=== PATIENT | male | born 1995 | race Caucasian/White ===

== ENCOUNTER 2018-04-17 15:44 | Emergency (ER) | payer OTHER ==
--- NOTE | 2018-04-17 15:57 | ER Report ---
History and Physical Time Seen By MD: 15:57 HPI/ROS CHIEF COMPLAINT: Cold symptoms HISTORY OF PRESENT ILLNESS: This is a 22-year-old male presents to the emergency department for cold symptoms. The patient states yesterday when he woke up he was not feeling well, did work today did not feel good significantly worse today, patient states he did take some ibuprofen and Tylenol yesterday, took some NyQuil today, and decided to come in for further evaluation, has aches and chills, a dry nonproductive cough. No rashes. REVIEW OF SYSTEMS: Constitutional: As above. Respiratory: As above. Cardiovascular: No chest pain, no palpitations. Gastrointestinal: No vomiting, no abdominal pain. Musculoskeletal: No back pain. Home Meds No Active Prescriptions or Reported Meds Past Medical/Surgical History Patient has a past medical and surgical history of bronchitis. Reviewed Nurses Notes: Yes Constitutional Vital Sign - Last 24 Hours 04/17/18 04/17/18 15:58 17:20 Temp 100.3 99.0 Pulse 105 98 Resp 20 20 B/P (MAP) 128/82 107/63 (78) Pulse Ox 93 92 O2 Delivery Room Air Room Air Physical Exam General Appearance: The patient is alert, has no immediate need for airway protection and no current signs of toxicity. Eyes: Pupils equal and round no injection. Respiratory: Chest is non tender, lungs are clear to auscultation. Cardiac: regular rate and rhythm, no murmurs, clicks or rubs. Gastrointestinal: Abdomen is soft and non tender, no masses, bowel sounds normal . Musculoskeletal: Neck: Anterior cervical chain lymphadenopathy. Extremities have full range of motion and are non tender. Skin: No rashes or lesions. DIFFERENTIAL DIAGNOSIS: After history and physical exam differential diagnosis was considered for adult fever including but not limited to viral syndromes including influenza, urinary tract infection, pneumonia and sepsis. Medical Decision Making Data Points Laboratory Hematology Test 04/17/18 15:51 Influenza Virus Type A (PCR) Positive (NEGATIVE) Influenza Virus Type B (PCR) Negative (NEGATIVE) Chemistry Test 04/17/18 15:51 Influenza Virus Type A (PCR) Positive (NEGATIVE) Influenza Virus Type B (PCR) Negative (NEGATIVE) ED Course/Re-evaluation ED Course Patient was admitted to room. A history and physical were obtained. Differential diagnoses were considered. Patient was positive for influenza a, I did review the results with the patient and his grandmother. Patient declined Tamiflu at this time, we discussed symptomatic treatment including ibuprofen, Tylenol and fluids. Patient was given a note for work, instructed to follow-up with his primary care provider or return to the ER for any other concerns, he expressed understanding was agreeable with this plan care and discharged home. Decision to Disposition Date: Apr 17, 2018 Decision to Disposition Time: 17:12 Depart Departure Latest Vital Signs Vital Signs Date Time Temp Pulse Resp B/P (MAP) Pulse Ox O2 Delivery O2 Flow Rate FiO2 04/17/18 17:20 99.0 98 20 107/63 (78) 92 Room Air Impression: Primary Impression: Influenza A Condition: Improved Disposition: HOME OR SELF-CARE New Scripts No Active Prescriptions or Reported Meds Departure Forms: ER Transition Record, Medications Reconciliation, Off Work/School Form, Number of days to be released: 3 Patient Portal Information Additional Instructions: You have influenza, no work for the next 3 days. Be sure to drink plenty of fluids. Get plenty of rest. Take ibuprofen and/or Tylenol as needed for pain. Return to the emergency department for any other concerns or worsening symptoms. HALIMA KNIGHT RN TRANSFER-BC Apr 17, 2018 15:57
[2018-04-17] MEDS ORDERED: IBUPROFEN 800 MG TAB PO ONE (16:05)
[2018-04-17 17:20] VITALS: BP 107/63
== END 2018-04-17 17:25 | disposition home or self-care (01) ==
LOC: ER 15:55
DX: J09.X2 Influenza due to identified novel influenza A virus with other respiratory manifestations (principal)
CPT/HCPCS: 87502